=== PATIENT | male | born 1950 | race African-American/Black ===

== ENCOUNTER 2016-08-01 23:17 | Emergency (ER) | payer MEDICARE, BC ==
[2016-08-02] MEDS ORDERED: LASIX20 M1 PO (10:50)
[2016-08-02] MEDS ORDERED: ALDACTONE50 M1 PO (10:51)
== END 2016-08-02 09:18 | disposition home or self-care (01) ==
LOC: ED 23:17
DX: K74.60 Unspecified cirrhosis of liver (principal); R18.8 Other ascites; F17.210 Nicotine dependence, cigarettes, uncomplicated
CPT/HCPCS: Q9967

== ENCOUNTER → 2016-08-08 | Outpatient (CLI) | payer MEDICARE, BC ==
[~2016-08-08] MED LIST: ALDACTONE50 M1 PO; LASIX20 M1 PO
== END ==
LOC: LAB 12:20
DX: K74.69 Other cirrhosis of liver (principal); E78.2 Mixed hyperlipidemia; R18.8 Other ascites; Z12.5 Encounter for screening for malignant neoplasm of prostate; N52.03 Combined arterial insufficiency and corporo-venous occlusive erectile dysfunction

== ENCOUNTER → 2016-08-17 | Outpatient (CLI) | payer MEDICARE, BC | LOC: LAB 09:49 | DX: R18.8 Other ascites (principal) ==

== ENCOUNTER → 2016-08-23 | Outpatient (CLI) | payer MEDICARE, BC | LOC: LAB 15:27 | DX: R18.8 Other ascites (principal); K74.69 Other cirrhosis of liver; E29.1 Testicular hypofunction ==